=== PATIENT | female | born 2000 | race African-American/Black ===

== ENCOUNTER 2023-03-24 23:58 | Emergency (ER) | payer MEDICAID ==
[~2023-03-24] VITALS: Ht 154.9 cm; Wt 99.8 kg
[2023-03-25 00:05] VITALS: BP 144/86; TEMP 99.1; O2SAT 100
[2023-03-25] MEDS ORDERED: PSEU30CA2 PO (00:58)
== END 2023-03-25 01:01 | disposition home or self-care (01) ==
LOC: ER 03-25 00:03
DX: B34.9 Viral infection, unspecified (principal); R09.81 Nasal congestion; J45.909 Unspecified asthma, uncomplicated; Z79.899 Other long term (current) drug therapy; Z59.00 Homelessness unspecified
CPT/HCPCS: 71045-TC